=== PATIENT | male | born 1965 | race Caucasian/White ===

== ENCOUNTER 2017-09-24 20:34 | Emergency (ER) | payer OTHER ==
[2017-09-24 20:53] VITALS: BP 161/98; PULSE 56; TEMP 98; BMI 26.9
[2017-09-24] MEDS ORDERED: DIPHTH,PERTUSS(ACELL),TET 0.5 ML DISP.SYRIN IM ONE (21:00)
--- NOTE | 2017-09-24 21:01 | PDOC ---
History of Present Illness - General Chief Complaint: Laceration Stated Complaint: LACERATION TO SCALP SUSTAINED OVER 24 HOURS AGO Time Seen by Provider: 09/24/17 20:41 - History of Present Illness Initial Comments: 09/24/17 21:11 The patient is a 51 year old male, with no significant past medical history who presents to the emergency department 1 day s/p laceration. As per patient, [place] branch fell and hit him on the head at 7: 30pm yesterday. He immediately noticed some bleeding from his scalp. Denies falling but lowered himself to the ground. He denies any loss of consciousness. Denies headache, N/V, focal weakness or numbness. Upon arrival at home, he washed his head with soap and water twice in the shower. His bleeding subsided with pressure. He is unaware of his last tetanus shot. He is asymptomatic but presented today as his co-workers recommended he have it checked out. He denies any recent fevers, chills, headache or dizziness. He denies any recent diarrhea or constipation. He denies any recent chest pain or shortness of breath. He denies any recent dysuria, frequency, urgency or hematuria. Allergies: NKA Past surgical history: None reported. Social History: Nonsmoker. Denies EtOH use and recreational drug use. Past History - Past Medical History Allergies/Adverse Reactions: Allergies Allergy/AdvReac Type Severity Reaction Status Date / Time No Known Allergies Allergy Unverified 09/24/17 20:41 Home Medications: Ambulatory Orders NK [No Known Home Medication] 09/24/17 COPD: No Other medical history: DENIES - Immunization History Immunization Up to Date: No - Suicide/Smoking/Psychosocial Hx Smoking History: Never smoked Information on smoking cessation initiated: No Hx Alcohol Use: Yes Drug/Substance Use Hx: No Substance Use Type: Alcohol Review of Systems - Review of Systems Comments:: 09/24/17 21:01 GENERAL/CONSTITUTIONAL: No fever or chills. No weakness. HEAD, EYES, EARS, NOSE AND THROAT: No change in vision. No ear pain or discharge. No sore throat. GASTROINTESTINAL: No nausea, vomiting, diarrhea or constipation. GENITOURINARY: No dysuria, frequency, or change in urination. CARDIOVASCULAR: No chest pain or shortness of breath. RESPIRATORY: No cough, wheezing, or hemoptysis. MUSCULOSKELETAL: No joint or muscle swelling or pain. No neck or back pain. SKIN: +lac NEUROLOGIC: No headache, vertigo, loss of consciousness, or change in strength/ sensation. ENDOCRINE: No increased thirst. No abnormal weight change. HEMATOLOGIC/LYMPHATIC: No anemia, easy bleeding, or history of blood clots. ALLERGIC/IMMUNOLOGIC: No hives or skin allergy. *Physical Exam - Vital Signs Last Vital Signs Temp Pulse Resp BP Pulse Ox 98 F 56 L 16 161/98 100 09/24/17 20:40 09/24/17 20:40 09/24/17 20:40 09/24/17 20:40 09/24/17 20:40 - Physical Exam Comments: 09/24/17 21:02 GENERAL: Awake, alert, and fully oriented, in no acute distress HEAD: left parietal scalp with linear, clean, hemostatic 5cm laceration EYES: PERRLA, EOMI, sclera anicteric, conjunctiva clear ENT: Auricles normal inspection, hearing grossly normal, nares patent, oropharynx clear without exudates. Moist mucosa NECK: Normal ROM, supple, no lymphadenopathy, JVD, or masses LUNGS: Breath sounds equal, clear to auscultation bilaterally. No wheezes, and no crackles HEART: Regular rate and rhythm, normal S1 and S2, no murmurs, rubs or gallops ABDOMEN: Soft, nontender, normoactive bowel sounds. No guarding, no rebound. No masses EXTREMITIES: Normal range of motion, no edema. No clubbing or cyanosis. No cords, erythema, or tenderness NEUROLOGICAL: Normal speech, cranial nerves intact, negative pronator drift, 5/ 5 strength in all 4 extremities, normal sensation to light touch in all 4 extremities, normal cerebellar exam, normal gait, normal reflexes and tone SKIN: Warm, Dry, normal turgor, no rashes or lesions noted. Medical Decision Making - Medical Decision Making 09/24/17 21:04 51yo M with no PMH presents to the ED with scalp lac with injury >25hrs ago. Due to concern for infection, will allow wound to heal by secondary intention. Offered to clean wound out, however pt has already washed it out with soap twice in the shower and declines irrigation in ED. WIll update tetanus. WIth regards to head trauma, pt is neuro intact with no headache, N/V, unlikely intracranial injury. Pt feels well, requests DC. I discussed the physical exam findings, ancillary test results and final diagnoses with the patient. I answered all of the patient's questions. The patient was satisfied with the care received and felt comfortable with the discharge plan and treatment plan. The patient will call their primary care physician within 24 hours to arrange follow-up and will return to the Emergency Department with any new, persistent or worsening symptoms. *DC/Admit/Observation/Transfer Diagnosis at time of Disposition: Head trauma, Laceration - Discharge Dispostion Disposition: HOME Condition at time of disposition: Stable - Referrals - Patient Instructions Printed Discharge Instructions: DI for Closed Head Injury Additional Instructions: Follow up with your primary doctor within 2-3 days. Have a friend or family member monitor your wound to ensure it is not increasing in redness. Return to the emergency department if you have any fever, smelly discharge, worsening pain or any new or concerning symptoms. - Post Discharge Activity - Attestations Physician Attestion: 09/24/17 21:11 I, Dr. Destinee Choi MD, attest that this document has been prepared under my direction and personally reviewed by me in its entirety. I further attest, that it accurately reflects all work, treatment, procedures and medical decision -making performed by me.
== END 2017-09-24 21:24 | disposition home or self-care (01) ==
LOC: FER 20:34
PROC: 3E0234Z Introduction of Serum, Toxoid and Vaccine into Muscle, Percutaneous Approach (ICD-10-PCS; principal; 2017-09-24)
DX: S09.90XA Unspecified injury of head, initial encounter (principal); S01.01XA Laceration without foreign body of scalp, initial encounter; R05 Cough; W20.8XXA Other cause of strike by thrown, projected or falling object, initial encounter; Y93.89 Activity, other specified; Y92.89 Other specified places as the place of occurrence of the external cause
CPT/HCPCS: 90715; 99282-25